=== PATIENT | female | born 1960 | race Caucasian/White ===

== ENCOUNTER 2017-04-24 09:25 | Emergency (ER) | payer OTHER ==
[2017-04-24] MEDS ORDERED: NS 1,000 ML IV ONE (09:53)
[2017-04-24] MEDS ORDERED: HYDROmorphONE/DILAUDID 1 MG/ML SYR IVP ONE (09:53)
[2017-04-24] MEDS ORDERED: ONDANSETRON 4 MG/2 ML VIAL IVP ONE (09:53)
--- NOTE | 2017-04-24 09:55 | EDPHY ---
H & P Stated Complaint: lower abd pain, flank pain, Time Seen by Provider: 04/24/17 09:49 HPI/ROS: CHIEF COMPLAINT: Left flank pain HISTORY OF PRESENT ILLNESS: Patient is a 56[facility] of left flank pain that radiates to her groin. She states that it began abruptly 2 hours ago. She denies urinary or vaginal symptoms. She is nauseous but has not vomited. She has a history of coronary artery disease with several stents but no other significant medical history. She denies chest pain or shortness of breath. No diarrhea. REVIEW OF SYSTEMS: Constitutional: denies: chills, fever, recent illness, recent injury EENTM: denies: blurred vision, double vision, nose congestion Respiratory: denies: cough, shortness of breath Cardiac: denies: chest pain, irregular heart rate, lightheadedness, palpitations Gastrointestinal/Abdominal: See HPI Genitourinary: denies: dysuria, frequency, hematuria, pain Musculoskeletal: denies: joint pain, muscle pain Skin: denies: lesions, rash, jaundice, bruising Neurological: denies: headache, numbness, paresthesia, tingling, dizziness, weakness Hematologic/Lymphatic: denies: blood clots, easy bleeding, easy bruising Immunologic/allergic: denies: HIV/AIDS, transplant EXAM: GENERAL: Uncomfortable, rolling in the gurney, saying "please help me" HEAD: Atraumatic, normocephalic. EYES: Pupils equal round and reactive to light, extraocular movements intact, sclera anicteric, conjunctiva are normal. ENT: TMs normal, nares patent, oropharynx clear without exudates. Moist mucous membranes. NECK: Normal range of motion, supple without lymphadenopathy or JVD. LUNGS: Breath sounds clear to auscultation bilaterally and equal. No wheezes rales or rhonchi. HEART: Regular rate and rhythm without murmurs, rubs or gallops. ABDOMEN: Soft, nontender, normoactive bowel sounds. No guarding, no rebound. No masses appreciated. BACK: No CVA tenderness, no spinal tenderness, step-offs or deformities EXTREMITIES: Normal range of motion, no pitting or edema. No clubbing or cyanosis. NEUROLOGICAL: Cranial nerves II through XII grossly intact. Normal speech, normal gait. 5/5 strength, normal movement in all extremities, normal sensation PSYCH: Normal mood, normal affect. SKIN: Warm, dry, normal turgor, no visible rashes or lesions. Source: Patient Exam Limitations: No limitations - Personal History Current Tetanus/Diphtheria Vaccine: Yes Current Tetanus Diphtheria and Acellular Pertussis (TDAP): Yes - Medical/Surgical History Hx Asthma: No Hx Chronic Respiratory Disease: No Hx Diabetes: No Hx Cardiac Disease: Yes Hx Renal Disease: No Hx Cirrhosis: No Hx Alcoholism: No Hx HIV/AIDS: No Hx Splenectomy or Spleen Trauma: No Other PMH: pmh- HTN, hyperlipidemia. psh- Stents ( [id number]), csec - Family History Significant Family History: No pertinent family hx - Social History Smoking Status: Never smoked Alcohol Use: Sober Drug Use: None Constitutional: Initial Vital Signs Temperature (C) 36.5 C 04/24/17 09:28 Heart Rate 85 04/24/17 09:28 Respiratory Rate 22 H 04/24/17 09:28 Blood Pressure 181/108 H 04/24/17 09:28 O2 Sat (%) 99 04/24/17 09:28 O2 Delivery Mode Room Air O2 (L/minute) 4 Allergies/Adverse Reactions: No Known Allergies Allergy (Verified 01/03/16 12:20) Home Medications: Medication Instructions Recorded Cholecalciferol Vit D3 [Vitamin D3 2,000 units PO HS 03/17/15 (*)] Nebivolol HCl [Bystolic] 10 mg PO HS 03/17/15 [place]-3 Fatty Acids [Fish Oil 1000 1,000 mg PO BID 03/17/15 mg (*)] Prasugrel HCl [Effient] 10 mg PO HS 06/17/15 [place]/Supplements -Info Only 1 ea PO DAILY 12/08/15 LISINOPRIL 10 mg PO DAILY 12/08/15 Aspirin EC [Aspirin EC 325 mg (*)] 325 mg PO DAILY #0 tab 12/09/15 Ezetimibe [Zetia 10 MG (*)] 10 mg PO HS 01/03/16 Colchicine [Colchicine (*)] 0.6 mg PO DAILY #30 ea 01/04/16 Ibuprofen [Motrin (*)] 600 mg PO Q8 #40 tab 01/04/16 Pantoprazole Sodium [Protonix 40mg 40 mg PO DAILY #30 tab 01/04/16 (*)] Hydrocodone/APAP 5/325 [[place] 1 - 2 tab PO Q4H PRN #10 tab 04/24/17 5/325] Ondansetron Odt [Zofran Odt 4 mg 4 mg PO Q4 PRN #20 tab 04/24/17 (RX)] Tamsulosin HCl [Flomax] 0.4 mg PO DAILY #10 cap 04/24/17 Medical Decision Making - Diagnostics Imaging: Discussed imaging studies w/ call center coordinator Radiologist ED Course/Re-evaluation: 11:04 a.m. the patient is feeling much better. We discussed her CT and lab results. I will hold off on Toradol. I will treat her with Flomax. Her pain is currently controlled. We discussed follow-up with Urology and straining her urine. I also discussed with her the mass in her kidney and repeat CT scan in a few weeks with contrast. She understands and agrees with this plan. She declines any further workup or testing at this time. 2:20 p.m. the patient was feeling quite sedate after her Dilaudid. She is now ambulatory and more awake. Pain is still under control. We will discharge her home at this time. Differential Diagnosis: Partial list of the Differential diagnosis considered include but were not limited to; kidney stone, diverticulitis and although unlikely based on the history and physical exam, I also considered a section, ischemia, volvulus. I discussed these differential diagnoses and the plan with the patient as well as the usual and expected course. The patient understands that the diagnosis is provisional and that in medicine we are not always correct and that further workup is often warranted. Usual and customary warnings were given. All of the patient's questions were answered. The patient was instructed to return to the emergency department should the symptoms at all worsen or return, otherwise to followup with the physician as we discussed. - Data Points Laboratory Results: Laboratory Results 04/24/17 10:15 04/24/17 10:15 Medications Given: Discontinued Medications Aspirin Buffered (Aspirin Ec) 325 mg PO EDNOW ONE Stop: 04/24/17 13:22 Last Admin: 04/24/17 13:44 Dose: 325 mg Hydromorphone HCl (Dilaudid) 1 mg IVP EDNOW ONE Stop: 04/24/17 09:54 Last Admin: 04/24/17 10:15 Dose: 1 mg Sodium Chloride (Ns) 1,000 mls @ 0 mls/hr IV ONCE ONE; Wide Open PRN Reason: Protocol Stop: 04/24/17 09:54 Last Admin: 04/24/17 10:15 Dose: 1,000 mls Ibuprofen (Motrin) 600 mg PO EDNOW ONE Stop: 04/24/17 14:54 Last Admin: 04/24/17 14:55 Dose: 600 mg Ondansetron HCl (Zofran) 8 mg IVP EDNOW ONE Stop: 04/24/17 09:54 Last Admin: 04/24/17 10:15 Dose: 8 mg Ondansetron HCl (Zofran Odt) 4 mg PO EDNOW ONE Stop: 04/24/17 15:14 Last Admin: 04/24/17 15:14 Dose: 4 mg Tamsulosin HCl (Flomax) 0.4 mg PO EDNOW ONE Stop: 04/24/17 11:27 Last Admin: 04/24/17 11:46 Dose: 0.4 mg Departure - Departure Disposition: Home, Routine, Self-Care Clinical Impression: Kidney stone on left side Condition: Fair Instructions: Kidney Stones (ED) Additional Instructions: Have your doctor order a repeat CT scan of the kidney in to a 3 weeks with contrast to evaluate the mass in her left kidney. Referrals: Clementine Stanley PA [Primary Care Provider] - As per Instructions Leo Latham MD [Medical Doctor] - As per Instructions Prescriptions: Hydrocodone/APAP 5/325 [[place] 5/325] 1 - 2 tab PO Q4H PRN #10 tab PRN Reason: Pain, Moderate Ondansetron Odt [Zofran Odt 4 mg (RX)] 4 mg PO Q4 PRN #20 tab PRN Reason: Nausea & Vomiting Tamsulosin HCl [Flomax] 0.4 mg PO DAILY #10 cap
[2017-04-24 10:24] LABS: % IMMATURE GRANULYOCYTES 0.3 % (0.0-1.1); ABSOLUTE IMMATURE GRANULOCYTES 0.03 10^3/uL (0.00-0.10); ADD DIFF? NO; ADD MORPH? NO; ADD SCAN? NO; ATYPICAL LYMPHOCYTE FLAG 20 (0-99); FRAGMENT RBC FLAG 0 (0-99); HEMATOCRIT 44.7 % (38.0-47.0); HEMOGLOBIN 15.7 g/dL (12.6-16.3); LEFT SHIFT FLG 10 (0-99); LIPEMIA HEMOLYSIS FLAG 90 (0-99); MEAN CELL HEMOGLOBIN 31.7 pg (27.9-34.1); MEAN CELL HEMOGLOBIN CONCENTR. 35.1 g/dL (32.4-36.7); MEAN CELL VOLUME 90.1 fL (81.5-99.8); MEAN PLATELET VOLUME 10.7 fL (8.7-11.7); PLATELET CLUMPS FLAG 0 (0-99); PLATELET COUNT 267 10^3/uL (150-400); RED BLOOD CELL COUNT 4.96 10^6/uL (4.18-5.33); RED CELL DISTRIBUTION WIDTH 12.7 % (11.5-15.2)
[2017-04-24 10:41] LABS: ALANINE AMINOTRANSFERASE 39 IU/L (9-52); ALBUMIN 4.7 g/dL (3.5-5.0); ALKALINE PHOSPHATASE 59 IU/L (38-126); ANION GAP 17 mEq/L (8-16); ASPARTATE AMINOTRANSFERASE 27 IU/L (14-46); BILIRUBIN,TOTAL 1.1 mg/dL (0.1-1.4); BILIRUBIN-CONJUGATED 0.4 mg/dL (0.0-0.5); BILIRUBIN-UNCONJUGATED 0.7 mg/dL (0.0-1.1); CALCIUM 10.4 mg/dL (8.5-10.4); CARBON DIOXIDE 18 mEq/l (22-31); CHLORIDE 104 mEq/L (97-110); CREATININE 1.1 mg/dL (0.6-1.0); GLOMERULAR FILTRATION RATE 52; GLUCOSE 131 mg/dL (70-100); POTASSIUM 4.1 mEq/L (3.5-5.2); SODIUM 139 mEq/L (134-144); TOTAL PROTEIN 8.2 g/dL (6.3-8.2)
[2017-04-24 10:44] VITALS: RESP 14
[2017-04-24] MEDS ORDERED: TAMSULOSIN HCL 0.4 MG CAP PO ONE (11:26)
[2017-04-24] MEDS ORDERED: ASPIRIN EC 325 MG TAB PO ONE (13:21)
[2017-04-24] MEDS ORDERED: IBUPROFEN 600 MG TAB PO ONE ×2 (14:53→14:54)
[2017-04-24] MEDS ORDERED: ONDANSETRON DISINTEGRATING 4 MG TAB ONE (14:59)
[2017-04-24] MEDS ORDERED: ONDANSETRON DISINTEGRATING 4 MG TAB PO ONE (15:13)
[2017-04-24 15:16] VITALS: BP 190/108; PULSE 63; TEMP 98.2; O2SAT 94
== END 2017-04-24 15:14 | disposition home or self-care (01) ==
DX: N20.0 Calculus of kidney (principal); I10 Essential (primary) hypertension; E86.9 Volume depletion, unspecified; Z79.82 Long term (current) use of aspirin
CPT/HCPCS: 96374; J1170; J2405

== ENCOUNTER → 2017-04-27 | Outpatient (CLI) | payer OTHER | LOC: FIMAGING 10:39 | PROVIDERS: ATTEND Specialist | DX: N20.0 Calculus of kidney (principal); K59.00 Constipation, unspecified ==

== ENCOUNTER → 2017-05-02 | Outpatient (CLI) | payer OTHER | LOC: CIMAGING 17:23 | PROVIDERS: ATTEND Specialist | DX: N28.1 Cyst of kidney, acquired (principal) | CPT/HCPCS: 76770-PO ==

== ENCOUNTER → 2017-08-01 | Outpatient (CLI) | payer OTHER | LOC: CIMAGING 16:24 | PROVIDERS: ATTEND Physician Assistant Medical | DX: M79.672 Pain in left foot (principal) | CPT/HCPCS: 73590-PO; 73600-PO; 73620-PO ==

== ENCOUNTER → 2017-10-26 | Outpatient (CLI) | payer OTHER | LOC: FLAB 09:41 | PROVIDERS: ATTEND Specialist | DX: N20.0 Calculus of kidney (principal) ==